=== PATIENT | female | born 1990 | race Caucasian/White ===

== ENCOUNTER 2020-09-02 10:03 | Emergency (ER) | payer MEDICAID, SELFPAY ==
[2020-09-02 11:07] VITALS: BP 127/78; PULSE 68; RESP 16; TEMP 36.8; O2SAT 97; BMI 19.8
--- NOTE | 2020-09-02 11:42 | US_ITS ---
EXAMINATION: US VENOUS ULTRASOUND WITH DOPPLER LOWER EXTREMITY, LEFT CLINICAL INFORMATION: Pain and swelling COMPARISON: None TECHNIQUE: Ultrasound of the deep veins is performed from the hip to the calf with compression sonography and color and pulse Doppler assessment. Spectral analysis with color-flow imaging is performed. FINDINGS: There is normal venous compression and respiratory variation and augmented flow. The visualized common femoral vein, superficial femoral vein, profunda femoral vein, popliteal vein, and the trifurcation region shows no evidence of deep venous thrombosis. There is no significant popliteal fossa cyst. US/US venous duplex LE LT IMPRESSION: No DVT demonstrated in the left lower extremity.
--- NOTE | 2020-09-02 11:50 | ED.EXTPRO ---
HPI - Extremity Problem General Chief complaint: General Medical Stated complaint: PAIN LEFT LEG,SWELLING,LT ARM NUMB Time Seen by Provider: 09/02/20 11:42 Source: patient Mode of arrival: ambulatory Limitations: no limitations History of Present Illness MD Complaint: extremity pain and extremity swelling Onset (ago): day(s) (last night ) Pain Consistency: constant Location: left Quality: aching Radiation: none Relieving factors: nothing Exacerbating factors: palpation Associated symptoms: denies other symptoms Context: other (was told by her mom there is a family hx of VTE) Related Data Previous Rx's Medication Instructions Recorded cyclobenzaprine 10 mg PO TID PRN #14 tab 09/02/20 Allergies Allergy/AdvReac Type Severity Reaction Status Date / Time No Known Allergies Allergy Verified 09/02/20 11:42 Review of Systems Review of Systems: Constitutional : No Fever, No Chills ENT/Mouth : No Ear Pain, No Hoarseness, No sore throat Eyes: No Eye Pain, No Swelling, No Redness, No Foreign Body Cardiovascular : No Chest Pain, No SOB Respiratory : No Cough, No Dyspnea Gastrointestinal : No Nausea, No Vomiting, No Diarrhea, No abdominal Pain Genitourinary : No Dysuria, No Hematuria Musculoskeletal : no joint pain, pos Myalgias, No Joint Swelling Skin : No Skin lacerations, No rash Neuro : No Weakness, No Numbness, No Loss of Consciousness, No Dizziness, No Headache Psych : No Anxiety/Panic, No Depression Heme/Lymph: no easy bruising, no Lymphadenopathy Endocrine : No Polyuria, No Polydipsia All other systems reviewed and are negative [facility] Past Medical History Attestation statement: The following information was validated with the patient. Medical History delivery delivered Fibromyalgia Surgical History History of tubal ligation Social History Social History (Updated 09/02/20 @ 12:08 by Debbie Bender DO) Smoking Status: Never smoker Use of substances other than those prescribed or required for medical reasons: No Advance Directives: No Advance Directives Information Provided: Yes Physical Exam Vital Signs: Vital Signs: Last Vital Signs Temp 98.3 F 09/02/20 11:07 Pulse 68 09/02/20 11:07 Resp 16 09/02/20 11:07 BP 127/78 09/02/20 11:07 Pulse Ox 97 09/02/20 11:07 Body Mass Index 19.8 Appearance: Alert. Oriented X3. No acute distress. Eyes: Pupils equal, round and reactive to light. ENT: Pharynx normal. Neck: Normal inspection. Neck supple. CVS: Normal heart rate and rhythm. Pulses normal. Respiratory: No respiratory distress. Breath sounds normal. Abdomen: Soft and non-tender. Skin: Skin warm and dry. Normal skin color. Normal skin turgor. Extremities: No lower extremity edema. left calf ttp no obvious swelling, distal NV intact Neuro: Oriented X 3. No motor deficit. No sensory deficit. Course Course Course Narrative: negative workup stable for DC MDM - Extremity (Nontraumatic) MDM Narrative Medical decision making narrative: 30 yo female not on OCPs here with L calf pain - reported fam hx of VTE, will need lytes, DVT study, dispo per results and findings, currently undergoing workup for palpitations and syncope with ?POTs dx - no change in symptoms x 3 months has good outpatient follow up wearing holter monitor now Lab Data Result diagrams: 09/02/20 12:28 09/02/20 12:28 Labs: Lab Results 09/02/20 09/02/20 09/02/20 Range/Units 12:28 12:28 12:28 WBC 6.6 (4.8-10.8) X10*3/uL RBC 4.36 (4.20-5.50) X10*6/uL Hgb 12.8 (12.0-16.0) g/dl Hct 38.5 (37-47) % MCV 88.3 (80-98) fL MCH 29.4 (27.0-33.0) pg MCHC 33.2 (31.0-35.0) g/dl RDW 12.0 (11.0-16.0) % Plt Count 270 (160-400) X10*3/uL MPV 10.2 (9.4-12.3) fL Immature Gran % (Auto) 0.2 (0.0-0.4) % Neut % (Auto) 43.0 L (45-73) % Lymph % (Auto) 44.7 H (20-40) % Brantley % (Auto) 9.0 (2-11) % Eos % (Auto) 2.3 (0-4) % Baso % (Auto) 0.8 (0-2) % Lymph # (Auto) 2.9 (1.2-4.9) X10*3/uL Brantley # (Auto) 0.6 (0.1-1.2) X10*3/uL Eos # (Auto) 0.2 (0.0-0.4) X10*3/uL Baso # (Auto) 0.1 (0.0-0.2) X10*3/uL Abs Immat Gran (auto) 0.01 (0.00-0.03) X10*3/uL Absolute Neuts (auto) 2.8 (2.0-8.3) X10*3/uL Absolute Nucleated RBC 0.000 (0.0-0.012) X10*3/uL Nucleated RBC % (auto) 0.0 (0.0-0.2) /100WBC Hold Blue Top SEE NOTE Sodium 140 (135-145) mmol/L Potassium 4.1 (3.3-5.1) mmol/l Chloride 107 (96-108) mmol/L Carbon Dioxide 25 (22-29) mmol/L Anion Gap 12 (12-20) BUN 5 L (9-16) mg/dL Creatinine 0.67 (0.5-1.4) mg/dL Estim Creat Clear Calc 84.5 Estimated GFR > 60 Random Glucose 94 (60-115) mg/dL Calcium 9.3 (8.4-10.2) mg/dL Magnesium 2.1 (1.6-2.6) mg/dL Total Creatine Kinase 109 (26-140) U/L Discharge Plan Discharge Clinical Impression: Cramp in muscle Patient Disposition: Home, Self-Care Instructions: Leg Cramps (ED) Additional Instructions: return to ED for any worsening symptoms or concerns Prescriptions: New cyclobenzaprine 10 mg tablet 10 mg PO TID PRN (Reason: muscle spasm) Qty: 14 RF: 0 Referrals: Yenny Sanches DO [Primary Care Provider] - 2 days (if not better)
[2020-09-02 12:33] LABS: Basophils Absolute Auto 0.1 X10*3/uL (0.0-0.2); Basophils Percent Auto 0.8 % (0-2); Eosinophils Absolute Auto 0.2 X10*3/uL (0.0-0.4); Eosinophils Percent Auto 2.3 % (0-4); Hematocrit 38.5 % (37-47); Hemoglobin 12.8 g/dl (12.0-16.0); Imm Gran Abs Auto 0.01 X10*3/uL (0.00-0.03); Imm Gran Pct Auto 0.2 % (0.0-0.4); Lymphocytes Absolute Auto 2.9 X10*3/uL (1.2-4.9); Lymphocytes Percent Auto 44.7 % (20-40); MANUAL DIFF FLAG NO; Mean Corpuscular HGB Conc 33.2 g/dl (31.0-35.0); Mean Corpuscular Hemoglobin 29.4 pg (27.0-33.0); Mean Corpuscular Volume 88.3 fL (80-98); Mean Platelet Volume 10.2 fL (9.4-12.3); Monocytes Absolute Auto 0.6 X10*3/uL (0.1-1.2); Neutrophils Absolute Auto 2.8 X10*3/uL (2.0-8.3); Platelet Count 270 X10*3/uL (160-400); Red Blood Count 4.36 X10*6/uL (4.20-5.50); White Blood Count 6.6 X10*3/uL (4.8-10.8)
[2020-09-02 13:05] LABS: Anion Gap 12 (12-20); Blood Urea Nitrogen 5 mg/dL (9-16); Calcium 9.3 mg/dL (8.4-10.2); Carbon Dioxide 25 mmol/L (22-29); Chloride 107 mmol/L (96-108); Creatinine Clr Calc Pharmacy 84.5; Estimated Glomerular Filt Rate > 60; Glucose Random 94 mg/dL (60-115); Magnesium 2.1 mg/dL (1.6-2.6); Potassium 4.1 mmol/l (3.3-5.1); Sodium 140 mmol/L (135-145)
[2020-09-02 13:35] VITALS: BP 109/78; PULSE 78; RESP 16; O2SAT 98
== END 2020-09-02 13:36 | disposition home or self-care (01) ==
PROVIDERS: Emergency Provider Emergency Medicine; PCP Family Medicine
DX: R25.2 Cramp and spasm (principal); M79.605 Pain in left leg; M79.602 Pain in left arm
CPT/HCPCS: 36415; 80048; 82550; 83735; 85025; 93971; 99284

== ENCOUNTER 2020-10-23 10:41 | Emergency (ER) | payer MEDICAID, SELFPAY ==
[2020-10-23 10:50] VITALS: BP 124/78; PULSE 126; RESP 20; TEMP 36.8; O2SAT 98; BMI 20.2
[2020-10-23] MEDS: 0.9 % Sodium Chloride 1,000 ML 999 ML IV (11:47)
[2020-10-23] MEDS: Dicyclomine HCl 10 MG CAPSULE 20 MG PO (11:48)
[2020-10-23] MEDS: ondansetron HCL 4 MG/2 ML VIAL IVPUSH (11:48)
[2020-10-23 11:50] VITALS: BP 117/74; PULSE 99; RESP 20; TEMP 36.6; O2SAT 99
[2020-10-23 11:52] LABS: MANUAL DIFF FLAG NO
--- NOTE | 2020-10-23 11:55 | PC.NURSE ---
pt lab and lined. ambulated with steady gait to bathroom and provided urine sample. per patient she woke this morning with mid abdominal pain, n/v/d. had recent gallbladder removal surgery. pt medicated for pain, nausea, IV fluids running. awaiting lab results.
[2020-10-23 11:58] LABS: Glucose Urine UA NEG (NEG); Leukocyte Esterase Urine NEG (NEG); Nitrite Urine NEG (NEG); PH 5.5 (5.0-8.0); Specific Gravity - Urine >= 1.030 (1.005-1.025); Urine Blood TRACE (NEG); Urine Ketones NEG (NEG); Urine Protein NEG (NEG-TRACE)
[2020-10-23 11:58] LABS: Basophils Absolute Auto 0.1 X10*3/uL (0.0-0.2); Basophils Percent Auto 0.3 % (0-2); Eosinophils Absolute Auto 0.1 X10*3/uL (0.0-0.4); Eosinophils Percent Auto 0.7 % (0-4); Hematocrit 40.3 % (37-47); Hemoglobin 13.6 g/dl (12.0-16.0); Imm Gran Abs Auto 0.06 X10*3/uL (0.00-0.03); Imm Gran Pct Auto 0.4 % (0.0-0.4); Lymphocytes Absolute Auto 1.8 X10*3/uL (1.2-4.9); Lymphocytes Percent Auto 11.1 % (20-40); Mean Corpuscular HGB Conc 33.7 g/dl (31.0-35.0); Mean Corpuscular Hemoglobin 29.7 pg (27.0-33.0); Mean Platelet Volume 10.1 fL (9.4-12.3); Monocytes Percent Auto 5.9 % (2-11); Neutrophils Absolute Auto 13.3 X10*3/uL (2.0-8.3); Neutrophils Percent Auto 81.6 % (45-73); Platelet Count 332 X10*3/uL (160-400); Red Blood Count 4.58 X10*6/uL (4.20-5.50); Red Cell Distribution Width 12.3 % (11.0-16.0); White Blood Count 16.4 X10*3/uL (4.8-10.8)
[2020-10-23 11:59] LABS: Appearance Urine HAZY; Color Urine YELLOW
[2020-10-23 12:00] LABS: UPreg QC Valid YES; Urine Pregnancy NEGATIVE (NEGATIVE)
[2020-10-23 12:11] LABS: RBC Urine 0-2 /HPF (0); WBC Urine 0-2 /HPF (0-4)
[2020-10-23 12:12] LABS: Mucus Urine 1+ /LPF; Squamous Epithelial Cell Urine 1+ /LPF
[2020-10-23 12:33] LABS: Alanine Aminotransferase 14 U/L (0-31); Albumin Level 4.6 g/dL (3.5-5.0); Alkaline Phosphatase 88 U/L (39-117); Anion Gap 14 (12-20); Aspartate Amino Transferase 17 U/L (5-31); Bilirubin Direct 0.3 mg/dL (0.0-0.5); Bilirubin Total 1.1 mg/dL (0.0-1.0); Blood Urea Nitrogen 8 mg/dL (9-16); Calcium 9.3 mg/dL (8.4-10.2); Carbon Dioxide 21 mmol/L (22-29); Chloride 108 mmol/L (96-108); Creatinine Clr Calc Pharmacy 83.2; Estimated Glomerular Filt Rate > 60; Glucose Random 95 mg/dL (60-115); Sodium 139 mmol/L (135-145); Total Protein 7.8 g/dL (6.5-8.0)
--- NOTE | 2020-10-23 12:47 | PC.NURSE ---
pt reports pain is decreasing after medicated, appears more comfortable. PERSONAL SUPPORT WORKER at bedside. no vomiting since coming to ED.
--- NOTE | 2020-10-23 12:51 | CT_ITS ---
EXAMINATION: CT ABDOMEN AND PELVIS WITH CONTRAST CLINICAL INFORMATION: Abdominal pain COMPARISON: None TECHNIQUE: Multidetector volumetric images were obtained from the superior aspect of the liver through the pubic symphysis following administration 85 mL of Omnipaque 350 intravenous contrast. Sagittal and coronal reformatted images were obtained on the technologist's workstation. Oral contrast: Yes This CT examination was performed using dose optimization techniques as appropriate, variously including the following: *Automated exposure control *Adjustment of mA and/or kV according to patient size (this includes techniques or standardized protocols for targeted exams where dose is matched to indication/reason for exam; i.e. extremities or head) *Use of iterative reconstruction technique DLP: 321 mGy-cm FINDINGS: LUNG BASES: The visualized lung bases are unremarkable. LIVER, GALLBLADDER, AND BILIARY TREE: The liver is normal in size, shape, and attenuation. No focal hepatic lesion or biliary ductal dilatation is present. The gallbladder has been removed. PANCREAS: Unremarkable. SPLEEN: Unremarkable. ADRENAL GLANDS: Unremarkable. KIDNEYS AND URETERS: The kidneys are normal in size, shape, and attenuation. No hydronephrosis, hydroureter, or calculi seen. No perinephric stranding. BLADDER: Unremarkable. GASTROINTESTINAL TRACT: The small and large bowel is fluid-filled suggestive of an ileus. There is question of mild wall thickening of the distal small bowel/enteritis. The appendix is not seen. There is trace ascites seen in the pelvis. The stomach is unremarkable. ABDOMINAL WALL: No significant hernia is appreciated. LYMPH NODES: Normal. VASCULAR: Unremarkable. PELVIC VISCERA: Unremarkable. OSSEOUS STRUCTURES: Unremarkable. CT/CT abdomen pelvis w con IMPRESSION: Fluid-filled loops of small and large bowel suggestive of an ileus. There is question of mild wall thickening of the distal small bowel/enteritis. Small amount of ascites in the pelvis.
[2020-10-23] MEDS: iohexoL 350 MG/ML 100 ML INFUS..BTL IV (13:25)
--- NOTE | 2020-10-23 15:06 | ED.ABDPAIN ---
HPI - Abdominal Pain General Chief Complaint: Abdominal Pain <Markell Blackwood NP - Last Filed: 10/23/20 15:21> Stated Complaint: abd pain <Markell Blackwood NP - Last Filed: 10/23/20 15:21> Time Seen by Provider: 10/23/20 11:05 <Markell Blackwood NP - Last Filed: 10/23/20 15:21> Source: patient <Markell Blackwood NP - Last Filed: 10/23/20 15:21> Mode of arrival: ambulatory <Markell Blackwood NP - Last Filed: 10/23/20 15:21> Limitations: no limitations <Markell Blackwood NP - Last Filed: 10/23/20 15:21> History of Present Illness HPI narrative: 30-year-old female who reports chronic on and off history of GI problems with IBS she had her gallbladder removed three weeks ago include CDH this morning woke up with periumbilical abdominal pain with associated nausea and vomiting with 4 episodes of diarrhea. States she was feeling well after the cholecystectomy has not had any problems and not sure what happened this morning. She does endorse eating leftover chili last night. No recent travel sick contact. No fever. <Markell Blackwood NP - Last Filed: 10/23/20 15:21> MD elicited complaint: abdominal pain <Markell Blackwood NP - Last Filed: 10/23/20 15:21> Pertinent past history: other (IBS) <Markell Blackwood NP - Last Filed: 10/23/20 15:21> Onset (ago): hour(s) <Markell Blackwood NP - Last Filed: 10/23/20 15:21> Pain Consistency: constant <Markell Blackwood NP - Last Filed: 10/23/20 15:21> Location: periumbilical <Markell Blackwood NP - Last Filed: 10/23/20 15:21> Severity: moderate <Markell Blackwood NP - Last Filed: 10/23/20 15:21> Quality: cramping and aching <Markell Blackwood NP - Last Filed: 10/23/20 15:21> Radiation: none <Markell Blackwood NP - Last Filed: 10/23/20 15:21> Migration to: no migration <Markell Blackwood NP - Last Filed: 10/23/20 15:21> Exacerbating factors: vomiting <VARGAS Mitchell Last Filed: 10/23/20 15:21> Relieving factors: nothing <Markell Blackwood NP - Last Filed: 10/23/20 15:21> Associated symptoms: nausea, vomiting and diarrhea <VARGAS Mitchell Last Filed: 10/23/20 15:21> Related Data Home Medications: Previous Rx's Medication Instructions Recorded cyclobenzaprine 10 mg PO TID PRN #14 tab 09/02/20 dicyclomine 20 mg PO BID #14 tab 10/23/20 ondansetron HCl [Zofran] 4 mg PO Q8H PRN #10 tab 10/23/20 <VARGAS Mitchell Last Filed: 10/23/20 15:21> Allergies/Adverse Reactions: Allergies Allergy/AdvReac Type Severity Reaction Status Date / Time No Known Allergies Allergy Verified 09/02/20 11:42 <VARGAS Mitchell Last Filed: 10/23/20 15:21> Review of Systems Review of Systems Constitutional: No Weight loss, No Fever, No Chills, No Night Sweats, No Fatigue, No Malaise ENT/Mouth: No Hearing loss, No Ear Pain, No Nasal Congestion, No Sinus Pain, No Hoarseness, No sore throat, No Rhinorrhea, No Swallowing Difficulty Eyes: No Eye Pain, No Swelling, No Redness, No Foreign Body, No Discharge, No Vision Changes Cardiovascular: No Chest Pain, No SOB, No Dyspnea on Exertion, No Orthopnea, No Edema, No Palpitations Respiratory: No Cough, No Sputum, No Wheezing, No Dyspnea Gastrointestinal: As noted HPI, No Hematochezia, No Melena Genitourinary: no irregular bleeding, No Dysuria, No Urinary Frequency, No Hematuria, No Urinary Incontinence, No Urgency, No Flank Pain, No Urinary Flow Changes, No Hesitancy Musculoskeletal: No joint pain, No Myalgias, No Joint Swelling Skin: No Skin Lesions, No rash Neuro: No Weakness, No Numbness, No Paresthesias, No Loss of Consciousness, No Dizziness, No Headache Psych: Negative Heme/Lymph: No Bruising, No Bleeding,No Lymphadenopathy Endocrine: No Polyuria, No Polydipsia, No Temperature Intolerance <Markell Blackwood NP - Last Filed: 10/23/20 15:21> Yes all other systems are reviewed and are negative <Markell Blackwood NP - Last Filed: 10/23/20 15:21> Physical Exam Vital Signs: Vital Signs: Last Vital Signs Temp 98.4 F 10/23/20 15:16 Pulse 84 10/23/20 15:16 Resp 18 10/23/20 15:16 BP 98/57 L 10/23/20 15:16 Pulse Ox 97 10/23/20 15:16 Body Mass Index 20.2 Reviewed <Markell Blackwood NP - Last Filed: 10/23/20 15:21> Vital Signs: Last Vital Signs Temp 98.4 F 10/23/20 15:16 Pulse 84 10/23/20 15:16 Resp 18 10/23/20 15:16 BP 98/57 L 10/23/20 15:16 Pulse Ox 97 10/23/20 15:16 Body Mass Index 20.2 <Beltran Granda MD - Last Filed: 10/30/20 08:19> Const: General: cooperative and healthy appearing; No acute distress or intoxicated appearing <Markell Blackwood NP - Last Filed: 10/23/20 15:21> Nutritional Appearance: average body habitus <Markell Blackwood NP - Last Filed: 10/23/20 15:21> Orientation/consciousness: patient oriented x3 <Markell Blackwood NP - Last Filed: 10/23/20 15:21> HENMT: Head: Yes normal to inspection <Markell Blackwood NP - Last Filed: 10/23/20 15:21> Ears: hearing grossly normal bilaterally <Markell Blackwood NP - Last Filed: 10/23/20 15:21> Eyes: General: appearance normal, both eyes and all related structures <Markell Blackwood NP - Last Filed: 10/23/20 15:21> Visual Bateman: normal visual bateman by confrontation <Markell Blackwood NP - Last Filed: 10/23/20 15:21> Neck: Neck: Yes normal visual inspection, No positive Brudzinski's sign, No positive Kernig's sign and No tender <Markell Blackwood NP - Last Filed: 10/23/20 15:21> Thyroid: Thyroid normal <[facility] Jaison - Last Filed: 10/23/20 15:21> Chest: Chest palpation & inspection: normal inspection of the chest <[facility] Jaison - Last Filed: 10/23/20 15:21> Resp: Effort & Inspection: normal respiratory effort <[facility] Jaison - Last Filed: 10/23/20 15:21> Auscultation: clear to auscultation bilaterally <[facility] Jaison - Last Filed: 10/23/20 15:21> Cardio: Jugular venous distension: no JVD <[facility] Blackwood - Last Filed: 10/23/20 15:21> Rhythm: regular rhythm <[facility] Blackwood - Last Filed: 10/23/20 15:21> Heart sounds: S1 normal heart sound present and S2 normal heart sound present <[facility] Blackwood - Last Filed: 10/23/20 15:21> GI: Inspection: Yes normal to inspection <[facility] Jaison - Last Filed: 10/23/20 15:21> Palpation (GI): Soft to palpation, Tenderness to palpation present (GI) periumbilically, no guarding and not rigid <[facility] Jaison - Last Filed: 10/23/20 15:21> Percussion: Yes normal to percussion <[facility] Jaison - Last Filed: 10/23/20 15:21> Auscultation: normal bowel sounds <[facility] Blackwood - Last Filed: 10/23/20 15:21> : General: Yes no CVA tenderness <[facility] Blackwood - Last Filed: 10/23/20 15:21> Back/Spine/Pelvis: Back: no CVA tenderness <[facility] Blackwood - Last Filed: 10/23/20 15:21> Skin: General skin exam: no rashes or lesions noted <[facility] Blackwood - Last Filed: 10/23/20 15:21> Neuro: General: patient oriented x3 <[facility] Blackwood, DISTRIBUTOR CLEANER - Last Filed: 10/23/20 15:21> Extrem: General: Yes normal to inspection <Markell Blackwood NP - Last Filed: 10/23/20 15:21> Course Course Course Narrative: Flow showed leukocytosis of 16 otherwise no significant electrolyte derangement, UA negative. States 6/10 periumbilical pain continues given Bentyl risk benefits of having CT of the abdomen pelvis reviewed. She is consenting to this and states she would feel more comfortable doing this rather than going home with precautions. <Markell Blackwood NP - Last Filed: 10/23/20 15:21> I have reviewed the chart <Beltran Granda MD - Last Filed: 10/30/20 08:19> Reevaluation(s) Reevaluation #1: Has been resting comfortably since getting her CT. CT findings as noted and thus discussed with Dr. Nielsen does not feel requiring intervention for these findings came be safely DC home if tolerating p.o. intake well. And to recommend follow-up with her general surgeon at [facility]. Patient subsequently a crackers and drink and was monitored for little over an hour and feels better. States she feels comfortable plan. Copy of her workup was provided to her. Will discharge home with close precaution follow-up instructions. Repeat abdominal exam is benign. No evidence of peritonitis. Stable for discharge. <Markell Blackwood NP - Last Filed: 10/23/20 15:21> MDM - Abdominal Pain Differential Diagnosis Differential diagnosis: Likely abdominal pain, acute appendicitis, diverticulitis and gastroenteritis; Unlikely bowel perforation, calculus of kidney, constipation, endometriosis, gastritis, mesenteric ischemia, ovarian cyst, pancreatitis, peptic ulcer disease, renal colic and small bowel obstruction <Markell Blackwood NP - Last Filed: 10/23/20 15:21> Medical Records Attestation: I reviewed the patient's medical records. <Markell Blackwood NP - Last Filed: 10/23/20 15:21> Lab Data Attestation: I reviewed the patient's lab results. <Markell Blackwood NP - Last Filed: 10/23/20 15:21> Result diagrams: : 10/23/20 11:40 10/23/20 11:40 <Markell Blackwood NP - Last Filed: 10/23/20 15:21> Labs: Lab Results 10/23/20 10/23/20 10/23/20 Range/Units 11:40 11:40 11:40 WBC 16.4 H (4.8-10.8) X10*3/uL RBC 4.58 (4.20-5.50) X10*6/uL Hgb 13.6 (12.0-16.0) g/dl Hct 40.3 (37-47) % MCV 88.0 (80-98) fL MCH 29.7 (27.0-33.0) pg MCHC 33.7 (31.0-35.0) g/dl RDW 12.3 (11.0-16.0) % Plt Count 332 (160-400) X10*3/uL MPV 10.1 (9.4-12.3) fL Immature Gran % (Auto) 0.4 (0.0-0.4) % Neut % (Auto) 81.6 H (45-73) % Lymph % (Auto) 11.1 L (20-40) % Mckinley % (Auto) 5.9 (2-11) % Eos % (Auto) 0.7 (0-4) % Baso % (Auto) 0.3 (0-2) % Lymph # (Auto) 1.8 (1.2-4.9) X10*3/uL Mck[place]ley # (Auto) 1.0 (0.1-1.2) X10*3/uL Eos # (Auto) 0.1 (0.0-0.4) X10*3/uL Baso # (Auto) 0.1 (0.0-0.2) X10*3/uL Abs Immat Gran (auto) 0.06 H (0.00-0.03) X10*3/uL Absolute Neuts (auto) 13.3 H (2.0-8.3) X10*3/uL Absolute Nucleated RBC 0.000 (0.0-0.012) X10*3/uL Nucleated RBC % (auto) 0.0 (0.0-0.2) /100WBC Hold Blue Top SEE NOTE Sodium 139 (135-145) mmol/L Potassium 4.0 (3.3-5.1) mmol/l Chloride 108 (96-108) mmol/L Carbon Dioxide 21 L (22-29) mmol/L Anion Gap 14 (12-20) BUN 8 L D (9-16) mg/dL Creatinine 0.68 (0.5-1.4) mg/dL Estim Creat Clear Calc 83.2 Estimated GFR > 60 Random Glucose 95 (60-115) mg/dL Calcium 9.3 (8.4-10.2) mg/dL Total Bilirubin 1.1 H (0.0-1.0) mg/dL Direct Bilirubin 0.3 (0.0-0.5) mg/dL AST 17 (5-31) U/L ALT 14 (0-31) U/L Alkaline Phosphatase 88 (39-117) U/L Total Protein 7.8 (6.5-8.0) g/dL Albumin 4.6 (3.5-5.0) g/dL Urine Color Urine Appearance Urine pH (5.0-8.0) Ur Specific [place] (1.005-1.025) Urine Protein (NEG-TRACE) MG/DL Urine Glucose (UA) (NEG) MG/DL Urine Ketones (NEG) MG/DL Urine Blood (NEG) Urine Nitrite (NEG) Ur Leukocyte Esterase (NEG) Urine RBC (0) /HPF Urine WBC (0-4) /HPF Ur Squamous Epith Cells /LPF Urine Bacteria /LPF Urine Mucus /LPF Urine Test (NEGATIVE) 10/23/20 Range/Units 11:49 WBC (4.8-10.8) X10*3/uL RBC (4.20-5.50) X10*6/uL Hgb (12.0-16.0) g/dl Hct (37-47) % MCV (80-98) fL MCH (27.0-33.0) pg MCHC (31.0-35.0) g/dl RDW (11.0-16.0) % Plt Count (160-400) X10*3/uL MPV (9.4-12.3) fL Immature Gran % (Auto) (0.0-0.4) % Neut % (Auto) (45-73) % Lymph % (Auto) (20-40) % Mckinley % (Auto) (2-11) % Eos % (Auto) (0-4) % Baso % (Auto) (0-2) % Lymph # (Auto) (1.2-4.9) X10*3/uL Mck[place]ley # (Auto) (0.1-1.2) X10*3/uL Eos # (Auto) (0.0-0.4) X10*3/uL Baso # (Auto) (0.0-0.2) X10*3/uL Abs Immat Gran (auto) (0.00-0.03) X10*3/uL Absolute Neuts (auto) (2.0-8.3) X10*3/uL Absolute Nucleated RBC (0.0-0.012) X10*3/uL Nucleated RBC % (auto) (0.0-0.2) /100WBC Hold Blue Top Sodium (135-145) mmol/L Potassium (3.3-5.1) mmol/l Chloride (96-108) mmol/L Carbon Dioxide (22-29) mmol/L Anion Gap (12-20) BUN (9-16) mg/dL Creatinine (0.5-1.4) mg/dL Estim Creat Clear Calc Estimated GFR Random Glucose (60-115) mg/dL Calcium (8.4-10.2) mg/dL Total Bilirubin (0.0-1.0) mg/dL Direct Bilirubin (0.0-0.5) mg/dL AST (5-31) U/L ALT (0-31) U/L Alkaline Phosphatase (39-117) U/L Total Protein (6.5-8.0) g/dL Albumin (3.5-5.0) g/dL Urine Color YELLOW Urine Appearance HAZY Urine pH 5.5 (5.0-8.0) Ur Specific [place] >= 1.030 H (1.005-1.025) Urine Protein NEG (NEG-TRACE) MG/DL Urine Glucose (UA) NEG (NEG) MG/DL Urine Ketones NEG (NEG) MG/DL Urine Blood TRACE (NEG) Urine Nitrite NEG (NEG) Ur Leukocyte Esterase NEG (NEG) Urine RBC 0-2 (0) /HPF Urine WBC 0-2 (0-4) /HPF Ur Squamous Epith Cells 1+ /LPF Urine Bacteria NONE /LPF Urine Mucus 1+ /LPF Urine Test NEGATIVE (NEGATIVE) <Markell Blackwood NP - Last Filed: 10/23/20 15:21> Lab Results 10/23/20 10/23/20 10/23/20 Range/Units 11:40 11:40 11:40 WBC 16.4 H (4.8-10.8) X10*3/uL RBC 4.58 (4.20-5.50) X10*6/uL Hgb 13.6 (12.0-16.0) g/dl Hct 40.3 (37-47) % MCV 88.0 (80-98) fL MCH 29.7 (27.0-33.0) pg MCHC 33.7 (31.0-35.0) g/dl RDW 12.3 (11.0-16.0) % Plt Count 332 (160-400) X10*3/uL MPV 10.1 (9.4-12.3) fL Immature Gran % (Auto) 0.4 (0.0-0.4) % Neut % (Auto) 81.6 H (45-73) % Lymph % (Auto) 11.1 L (20-40) % Mckinley % (Auto) 5.9 (2-11) % Eos % (Auto) 0.7 (0-4) % Baso % (Auto) 0.3 (0-2) % Lymph # (Auto) 1.8 (1.2-4.9) X10*3/uL Mck[place]ley # (Auto) 1.0 (0.1-1.2) X10*3/uL Eos # (Auto) 0.1 (0.0-0.4) X10*3/uL Baso # (Auto) 0.1 (0.0-0.2) X10*3/uL Abs Immat Gran (auto) 0.06 H (0.00-0.03) X10*3/uL Absolute Neuts (auto) 13.3 H (2.0-8.3) X10*3/uL Absolute Nucleated RBC 0.000 (0.0-0.012) X10*3/uL Nucleated RBC % (auto) 0.0 (0.0-0.2) /100WBC Hold Blue Top SEE NOTE Sodium 139 (135-145) mmol/L Potassium 4.0 (3.3-5.1) mmol/l Chloride 108 (96-108) mmol/L Carbon Dioxide 21 L (22-29) mmol/L Anion Gap 14 (12-20) BUN 8 L D (9-16) mg/dL Creatinine 0.68 (0.5-1.4) mg/dL Estim Creat Clear Calc 83.2 Estimated GFR > 60 Random Glucose 95 (60-115) mg/dL Calcium 9.3 (8.4-10.2) mg/dL Total Bilirubin 1.1 H (0.0-1.0) mg/dL Direct Bilirubin 0.3 (0.0-0.5) mg/dL AST 17 (5-31) U/L ALT 14 (0-31) U/L Alkaline Phosphatase 88 (39-117) U/L Total Protein 7.8 (6.5-8.0) g/dL Albumin 4.6 (3.5-5.0) g/dL Urine Color Urine Appearance Urine pH (5.0-8.0) Ur Specific [place] (1.005-1.025) Urine Protein (NEG-TRACE) MG/DL Urine Glucose (UA) (NEG) MG/DL Urine Ketones (NEG) MG/DL Urine Blood (NEG) Urine Nitrite (NEG) Ur Leukocyte Esterase (NEG) Urine RBC (0) /HPF Urine WBC (0-4) /HPF Ur Squamous Epith Cells /LPF Urine Bacteria /LPF Urine Mucus /LPF Urine Test (NEGATIVE) 10/23/20 Range/Units 11:49 WBC (4.8-10.8) X10*3/uL RBC (4.20-5.50) X10*6/uL Hgb (12.0-16.0) g/dl Hct (37-47) % MCV (80-98) fL MCH (27.0-33.0) pg MCHC (31.0-35.0) g/dl RDW (11.0-16.0) % Plt Count (160-400) X10*3/uL MPV (9.4-12.3) fL Immature Gran % (Auto) (0.0-0.4) % Neut % (Auto) (45-73) % Lymph % (Auto) (20-40) % Mck[place] % (Auto) (2-11) % Eos % (Auto) (0-4) % Baso % (Auto) (0-2) % Lymph # (Auto) (1.2-4.9) X10*3/uL [place] # (Auto) (0.1-1.2) X10*3/uL Eos # (Auto) (0.0-0.4) X10*3/uL Baso # (Auto) (0.0-0.2) X10*3/uL Abs Immat Gran (auto) (0.00-0.03) X10*3/uL Absolute Neuts (auto) (2.0-8.3) X10*3/uL Absolute Nucleated RBC (0.0-0.012) X10*3/uL Nucleated RBC % (auto) (0.0-0.2) /100WBC Hold Blue Top Sodium (135-145) mmol/L Potassium (3.3-5.1) mmol/l Chloride (96-108) mmol/L Carbon Dioxide (22-29) mmol/L Anion Gap (12-20) BUN (9-16) mg/dL Creatinine (0.5-1.4) mg/dL Estim Creat Clear Calc Estimated GFR Random Glucose (60-115) mg/dL Calcium (8.4-10.2) mg/dL Total Bilirubin (0.0-1.0) mg/dL Direct Bilirubin (0.0-0.5) mg/dL AST (5-31) U/L ALT (0-31) U/L Alkaline Phosphatase (39-117) U/L Total Protein (6.5-8.0) g/dL Albumin (3.5-5.0) g/dL Urine Color YELLOW Urine Appearance HAZY Urine pH 5.5 (5.0-8.0) Ur Specific [place] >= 1.030 H (1.005-1.025) Urine Protein NEG (NEG-TRACE) MG/DL Urine Glucose (UA) NEG (NEG) MG/DL Urine Ketones NEG (NEG) MG/DL Urine Blood TRACE (NEG) Urine Nitrite NEG (NEG) Ur Leukocyte Esterase NEG (NEG) Urine RBC 0-2 (0) /HPF Urine WBC 0-2 (0-4) /HPF Ur Squamous Epith Cells 1+ /LPF Urine Bacteria NONE /LPF Urine Mucus 1+ /LPF Urine Test NEGATIVE (NEGATIVE) <Beltran Granda MD - Last Filed: 10/30/20 08:19> Imaging Data Abdominal/pelvis CT with IV contrast: Radiologist's impression: [id number] [place], [place] [id number] Scan ReportSigned Patient: Mercy CURIEL#: [id number]: 1990Acct:[id number]/Sex: 30 / FADM Date: 10/23/20Loc: [email or web address].EDAttending Dr: Ordering Physician: Markell Blackwood NP Date of Service: 10/23/20 Procedure(s): CT abdomen pelvis w con Accession Number(s): [id number] cc: Markell Blackwood DISTRIBUTOR CLEANER~ EXAMINATION: CT ABDOMEN AND PELVIS WITH CONTRAST CLINICAL INFORMATION: Abdominal pain COMPARISON: None TECHNIQUE: Multidetector volumetric images were obtained from the superior aspect of the liver through the pubic symphysis following administration 85 mL of Omnipaque 350 intravenous contrast. Sagittal and coronal reformatted images were obtained on the technologist's workstation. Oral contrast: Yes This CT examination was performed using dose optimization techniques as appropriate, variously including the following: *Automated exposure control *Adjustment of mA and/or kV according to patient size (this includes techniques or standardized protocols for targeted exams where dose is matched to indication/reason for exam; i.e. extremities or head) *Use of iterative reconstruction technique DLP: 321 mGy-cm FINDINGS: LUNG BASES: The visualized lung bases are unremarkable. LIVER, GALLBLADDER, AND BILIARY TREE: The liver is normal in size, shape, and attenuation. No focal hepatic lesion or biliary ductal dilatation is present. The gallbladder has been removed. PANCREAS: Unremarkable. SPLEEN: Unremarkable. ADRENAL GLANDS: Unremarkable. KIDNEYS AND URETERS: The kidneys are normal in size, shape, and attenuation. No hydronephrosis, hydroureter, or calculi seen. No perinephric stranding. BLADDER: Unremarkable. GASTROINTESTINAL TRACT: The small and large bowel is fluid-filled suggestive of an ileus. There is question of mild wall thickening of the distal small bowel/enteritis. The appendix is not seen. There is trace ascites seen in the pelvis. The stomach is unremarkable. ABDOMINAL WALL: No significant hernia is appreciated. LYMPH NODES: Normal. VASCULAR: Unremarkable. PELVIC VISCERA: Unremarkable. OSSEOUS STRUCTURES: Unremarkable. CT/CT abdomen pelvis w con IMPRESSION: Fluid-filled loops of small and large bowel suggestive of an ileus. There is question of mild wall thickening of the distal small bowel/enteritis. Small amount of ascites in the pelvis. Dictated By:MUSTAPHA CUADRA MDSigned By:<Electronically signed by MUSTAPHA CUADRA MD in [place]>10/23/20 1355 DD/ 1251TD/TT: Street Roller Engineer: EDGAR <Markell Blackwood NP - Last Filed: 10/23/20 15:21> Discharge Plan Discharge Clinical Impression: Gastroenteritis <Markell Blackwood NP - Last Filed: 10/23/20 15:21> Patient Disposition: Home, Self-Care <Markell Blackwood NP - Last Filed: 10/23/20 15:21> Instructions: Gastroenteritis (ED) <Markell Blackwood NP - Last Filed: 10/23/20 15:21> Additional Instructions: Drink plenty fluids Glandular diet as tolerated Return if any concerns or worsening symptoms Follow-up instruction Thank you <Markell Blackwood NP - Last Filed: 10/23/20 15:21> Prescriptions: New ondansetron HCl [Zofran] 4 mg tablet 4 mg PO Q8H PRN (Reason: nausea and vomiting) Qty: 10 RF: 0 dicyclomine 20 mg tablet 20 mg PO BID Qty: 14 RF: 0 No Action cyclobenzaprine 10 mg tablet 10 mg PO TID PRN (Reason: muscle spasm) Qty: 14 RF: 0 <Markell Blackwood NP - Last Filed: 10/23/20 15:21> Referrals: Yenny Sanches DO [Primary Care Provider] - 3 days <Markell Blackwood NP - Last Filed: 10/23/20 15:21> Interventions: ED Discharge Assessment Last Done: 10/23/20 15:28 <Markell Blackwood NP - Last Filed: 10/23/20 15:21> Discharge Date/Time: 10/23/20 15:29 <Markell Blackwood NP - Last Filed: 10/23/20 15:21> [facility] Past Medical History Medical History: Medical History (Updated 10/24/20 @ 00:00 by Janet Daangella) delivery delivered Fibromyalgia <Markell Blackwood NP - Last Filed: 10/23/20 15:21> Surgical History: Surgical History History of cholecystectomy History of tubal ligation <Markell Blackwood NP - Last Filed: 10/23/20 15:21> Social History Social History: Social History (Updated 09/02/20 @ 12:08 by Debbie Bender DO) Smoking Status: Never smoker Smoked in Last 30 Days: No Use of substances other than those prescribed or required for medical reasons: No Advance Directives: Yes Advance Directives Information Provided: Yes Advance Directives on File: No <Markell Blackwood NP - Last Filed: 10/23/20 15:21>
[2020-10-23 15:16] VITALS: BP 98/57; PULSE 84; RESP 18; TEMP 36.9; O2SAT 97
== END 2020-10-23 15:29 | disposition home or self-care (01) ==
PROVIDERS: Nurse Practitioner Primary Care; Emergency Provider Emergency Medicine; PCP Family Medicine
DX: K52.9 Noninfective gastroenteritis and colitis, unspecified (principal); Z79.899 Other long term (current) drug therapy
CPT/HCPCS: 36415; 74177; 80053; 80076; 81001; 81025; 82248; 85025; 96361; 96374; 99284; J2405; Q9967